=== PATIENT | male | born 1975 ===

== ENCOUNTER 2017-02-01 18:02 | Emergency (ER) | payer SELFPAY ==
--- NOTE | 2017-02-01 18:34 | ED PDOC ---
HPI: Hypertension/Hypotension Chief Complaint (Nursing): High Blood Pressure Chief Complaint (Provider): High Blood Pressure History Per: Patient History/Exam Limitations: no limitations Onset/Duration Of Symptoms: Hrs (2 hours prior to arrival) Current Symptoms Are (Timing): Better Associated Symptoms: Chest Pain Additional Complaint(s): Roberta is a 42 y/o male with no past medical history who was sent to the emergency department from urgent care with complaints of left-sided chest pressure radiating to the upper neck and left arm, onset 2 hours prior to arrival. Patient denies numbness, shortness of breath, dizziness, abdominal pain , nausea, vomiting, headaches, leg pain, back pain, cough, and rhinorrhea. He is not on hormone medications. Patient noticed the sudden onset of chest pressure and tingling in his fingers while at convention. Systolic blood pressure was 160 and he was given aspirin. Patient reports having similar symptoms in the past, and afterwards "was fine". Saw his PCP about 1 week ago and reportedly had a normal EKG. Since arriving and taking aspirin, he reports his pain and the tingling have declined. Here from [place]. PMD: Unknown Past Medical History Reviewed: Historical Data, Nursing Documentation, Vital Signs Vital Signs: Last Vital Signs Temp 97.9 F 02/01/17 18:04 Pulse 64 02/01/17 18:04 Resp 18 02/01/17 18:04 BP 141/91 H 02/01/17 18:04 Pulse Ox 97 02/01/17 18:04 - Medical History PMH: No Chronic Diseases - Surgical History Surgical History: Appendectomy Other surgeries: Leg surgery, arm surgery, vasectomy - Family History Family History: States: Unknown Family Hx - Social History Current smoker - smoking cessation education provided: No Alcohol: Social Drugs: Denies - Allergies Allergies/Adverse Reactions: Allergies Allergy/AdvReac Type Severity Reaction Status Date / Time No Known Allergies Allergy Verified 02/01/17 18:04 Review of Systems ROS Statement: Except As Marked, All Systems Reviewed And Found Negative ENT: Negative for: Nose Discharge Cardiovascular: Positive for: Chest Pain (left-sided chest pressure radiating to upper neck and left arm) Respiratory: Negative for: Cough, Shortness of Breath Gastrointestinal: Negative for: Nausea, Vomiting, Abdominal Pain Musculoskeletal: Positive for: Arm Pain (Left arm). Negative for: Back Pain, Leg Pain Neurological: Positive for: Other (Tingling in fingers). Negative for: Numbness , Headache, Dizziness Physical Exam - Reviewed Nursing Documentation Reviewed: Yes Vital Signs Reviewed: Yes - Physical Exam Appears: Positive for: Non-toxic, No Acute Distress Head Exam: Positive for: ATRAUMATIC, NORMAL INSPECTION, NORMOCEPHALIC Skin: Positive for: Normal Color, Warm, Dry Eye Exam: Positive for: EOMI, Normal appearance, PERRL ENT: Positive for: Normal ENT Inspection Neck: Positive for: Normal, Painless ROM, Supple Cardiovascular/Chest: Positive for: Regular Rate, Rhythm, Chest Non Tender Respiratory: Positive for: Normal Breath Sounds. Negative for: Accessory Muscle Use, Respiratory Distress Gastrointestinal/Abdominal: Positive for: Normal Exam, Soft. Negative for: Tenderness Back: Positive for: Normal Inspection. Negative for: L CVA Tenderness, R CVA Tenderness Extremity: Positive for: Normal ROM. Negative for: Tenderness, Pedal Edema, Calf Tenderness, Deformity Neurologic/Psych: Positive for: Alert, Oriented. Negative for: Motor/Sensory Deficits - Laboratory Results Result Diagrams: 02/01/17 19:00 02/01/17 19:00 Interpretation Of Abn Labs: 12.1 wbc - ECG ECG: Positive for: Interpreted By Me, Viewed By Me ECG Rhythm: Positive for: Normal QRS, Normal ST Segment, Sinus Rhythm O2 Sat by Pulse Oximetry: 97 (RA) Pulse Ox Interpretation: Normal - Radiology X-Ray: Interpreted by Me, Viewed By Nc X-Ray Interpretation: No Acute Disease - Progress ED Course And Treament: 2046: Stable. Pain free. Tolerated po. Does not want to stay for further evaluation and treatment. Aware of possible and decreased functioning from chest pain/lung related issues. AAOx3. Has capacity to make decisions. Medical Decision Making Medical Decision Making: Time: 18:35 Initial Plan: --NS IV 1000 ml at 1000 mls/hr --CXR --EKG Time: 19:00 --CMP --Lipase --Troponin I --CBC --Partial thrompoplastin time --Prothrombin time --Pending reevaluation Scribe Attestation: Documented by Yelena Arriaza, acting as a scribe for Ronnie Ross MD Provider Scribe Attestation: All medical record entries made by the Scribe were at my direction and personally dictated by me. I have reviewed the chart and agree that the record accurately reflects my personal performance of the history, physical exam, medical decision making, and the department course for this patient. I have also personally directed, reviewed, and agree with the discharge instructions and disposition. Disposition - Clinical Impression Clinical Impression: Chest pain - Patient ED Disposition Is Patient to be Admitted: No Counseled Patient/Family Regarding: Studies Performed, Diagnosis, Need For Followup - Disposition Referrals: [facility] [Outside] - 02/04/17 Disposition: Routine/Home Disposition Time: 20:46 Condition: STABLE Additional Instructions: Return right away for further evaluation and treatment. You do not wish to stay in the hospital for further evaluation and treatment. You are aware of possible or decreased functioning from chest pain and heart/lung related issues. Instructions: Chest Pain (ED)
[2017-02-01] MEDS ORDERED: Sodium Chloride 0.9% 1,000 ML IV STA (18:35)
[2017-02-01 19:03] LABS: BASO # 0.1 K/uL (0.0-0.2); BASO % 0.5 % (0.0-2.0); EOS % 0.2 % (0.0-4.0); HEMOGLOBIN 14.9 g/dL (12.0-18.0); LYMPH % 16.5 % (20.0-40.0); MEAN CELL VOLUME 93.8 fl (80.0-94.0); MEAN PLATELET VOLUME 8.4 fl (7.2-11.7); MONO # 0.8 K/uL (0.0-0.8); MONO % 6.5 % (0.0-10.0); NEUT # 9.2 K/uL (1.8-7.0); NEUT % 76.3 % (50.0-75.0); NRBC % 0.1 % (0.0-0.0); RBC 4.81 Mil/uL (4.40-5.90); RED CELL DISTRIBUTION WIDTH 13.4 % (11.5-14.5); WHITE BLOOD COUNT 12.1 K/uL (4.8-10.8)
[2017-02-01 19:17] LABS: ALB/GLOB RATIO 1.4 (1.0-2.1); ALBUMIN 4.8 g/dL (3.5-5.0); ALT/SGPT 53 U/L (21-72); AST/SGOT 26 U/L (17-59); BLOOD UREA NITROGEN 19 mg/dl (9-20); CALCIUM 10.2 mg/dL (8.4-10.2); GFR AFRICAN-AMERICAN > 60; GFR NON-AFRICAN AMERICAN > 60; LIPASE 60 U/L (23-300)
[2017-02-01 19:49] LABS: PARTIAL THROMBOPLASTIN TIME 32.2 Seconds (25.6-37.1); PROTHROMBIN TIME 11.3 Seconds (9.8-13.1)
--- NOTE | 2017-02-02 08:04 | RAD ---
HISTORY: chest pain COMPARISON: None available. TECHNIQUE: Chest, one view. FINDINGS: LUNGS: No focal consolidation. Probable right upper lobe calcified granuloma. Please note that chest x-ray has limited sensitivity for the detection of pulmonary masses. PLEURA: No significant pleural effusion identified. No definite pneumothorax . CARDIOVASCULAR: The cardiomediastinal silhouette appears within normal limits of size. OSSEOUS STRUCTURES: No acute osseous abnormality identified. VISUALIZED UPPER ABDOMEN: Unremarkable. OTHER FINDINGS: None. IMPRESSION: No focal consolidation, significant pleural effusion, or definite pneumothorax identified.
[2017-02-02 12:00] VITALS: BP 134/83; PULSE 60; RESP 18; TEMP 97.9; O2SAT 100
--- NOTE | 2017-02-02 13:48 | CARD ---
APPROVED REPORT EKG Measurement Heart [id number] <Conclusion> Sinus bradycardia Otherwise normal ECG
== END 2017-02-01 21:13 | disposition home or self-care (01) ==
LOC: H.ER 18:02
DX: I10 Essential (primary) hypertension (principal); R07.89 Other chest pain
CPT/HCPCS: 71010; 80053; 83690; 84484; 85025; 85610; 85730; 93005; 99284; J7040